=== PATIENT | male | born 1995 | race African-American/Black ===

== ENCOUNTER 2020-01-20 11:35 | Emergency (ER) | payer MEDICAID ==
[~2020-01-20] VITALS: Ht 188 cm; Wt 86.4 kg
[2020-01-20 12:57] LABS: BASOPHILS % (AUTO) 0.4 % (0.0-2.0); EOSINOPHILS % (AUTO) 0.3 % (1.0-6.0); HEMATOCRIT 45.1 % (41-53); HEMOGLOBIN 14.6 g/dL (13.5-17.5); LYMPHOCYTES # (AUTO) 1.4 K/uL (1.0-4.8); LYMPHOCYTES % (AUTO) 23.1 % (22.0-44.0); MEAN CORPUSCULAR HEMOGLOBIN 29.7 pg (26.0-34.0); MEAN CORPUSCULAR HGB CONC 32.4 G/dL (31.0-37.0); MEAN CORPUSCULAR VOLUME 92 fL (80-100); MONOCYTES # (AUTO) 0.5 K/uL (0.1-1.0); MONOCYTES % (AUTO) 8.2 % (2.0-9.0); PLATELET COUNT (AUTO) 211 K/uL (150-450); RED BLOOD CELL COUNT(AUTO) 4.93 MIL/uL (4.50-5.90); RED CELL DISTRIBUTION WIDTH 13.3 % (11.5-14.5)
[2020-01-20 13:06] LABS: ANION GAP 11 mmol/L (8-16); CARBON DIOXIDE 28 mmol/L (22-29); CHLORIDE 101 mmol/L (98-107); GLOMERULAR FILTR. RATE CALC > 60 mL/min (>60); GLUCOSE,RANDOM 75 mg/dL (70-110); POTASSIUM 4.2 mmol/L (3.5-5.1); SODIUM SERUM 140 mmol/L (136-145); UREA NITROGEN, BLOOD 12 mg/dL (7-18)
[2020-01-20 13:11] LABS: ALANINE AMINOTRANSFERASE 29 U/L (12-78); ALBUMIN 4.1 g/dL (3.4-5.0); ALKALINE PHOSPHATASE 55 U/L (46-116); ASPARTATE AMINOTRANSFERASE 32 U/L (15-37); BILIRUBIN,TOTAL 3.3 mg/dL (0.1-1.0); CREATINE KINASE, TOTAL ONLY 544 U/L (39-308); TOTAL PROTEIN, SERUM 6.9 g/dL (6.4-8.2)
[2020-01-20 16:12] VITALS: BP 118/68
== END 2020-01-20 16:21 | disposition home or self-care (01) ==
LOC: EMS 11:38 → EDBD 11:38 → EMS 16:21
DX: F19.10 Other psychoactive substance abuse, uncomplicated (principal); F41.9 Anxiety disorder, unspecified; F32.9 Major depressive disorder, single episode, unspecified; F20.9 Schizophrenia, unspecified; F12.20 Cannabis dependence, uncomplicated
CPT/HCPCS: 36415; 80053; 82550; 83735; 85025; 99285; G0480

== ENCOUNTER 2021-04-01 13:03 | Inpatient (IN) | payer MEDICAID ==
[2021-04-01 16:30] VITALS: BP 122/80
[2021-04-01] MEDS ORDERED: HALOPERIDOL 5 MG TABLET PO PRN (17:00)
[2021-04-01 18:30] VITALS: BP 137/89
[2021-04-01] MEDS ORDERED: RISP1TAB48 PO (18:48)
[2021-04-01] MEDS: ZOLPIDEM TARTRATE 10 MG TABLET PO PRN (23:26)
[2021-04-02 06:11] VITALS: BP 101/51
[2021-04-02] MEDS ORDERED: PETROLATUM,WHITE 28 GM JELLY TP PRN (10:15)
[2021-04-02] MEDS ORDERED: LOPERAMIDE HCL 2 MG CAPSULE PO PRN (10:15)
[2021-04-02] MEDS ORDERED: DOCUSATE SODIUM 100 MG CAPSULE PO PRN (10:15)
[2021-04-02] MEDS ORDERED: ONDANSETRON HCL 4 MG TABLET PO PRN (10:15)
[2021-04-02] MEDS ORDERED: NICOTINE 14 MG/24 HOUR PATCH TD PRN (10:15)
[2021-04-02] MEDS ORDERED: MAG HYDROX/AL HYDROX/SIMETH ES 30 ML SUSPENSION UDCUP PO PRN (10:15)
[2021-04-02] MEDS ORDERED: MAGNESIUM HYDROXIDE SUSPENSION 30 ML UDCUP PO PRN (10:15)
[2021-04-02] MEDS ORDERED: GuaiFENesin/D-METHORPHAN [SUGAR-FREE] 200-20MG/10 ML SYRUP UDCUP PO PRN (10:15)
[2021-04-02] MEDS ORDERED: ALBUTEROL SULFATE HFA 90 MCG/PUFF 8 GM INHALER IH PRN (10:15)
[2021-04-02] MEDS ORDERED: CloNIDine HCL 0.1 MG TABLET PO PRN (10:15)
[2021-04-02] MEDS ORDERED: IBUPROFEN 400 MG TABLET PO PRN (10:15)
[2021-04-02 16:10] VITALS: BP 146/79
[2021-04-02] MEDS: LORazepam 2 MG TABLET PO PRN (16:17)
[2021-04-02] MEDS: RisperiDONE 2 MG TABLET PO SCH (16:17)
[2021-04-02 17:17] VITALS: BP 108/58
[2021-04-03] MEDS: RisperiDONE 2 MG TABLET PO SCH ×2 (08:18→15:33)
[2021-04-03] MEDS: ACETAMINOPHEN 325 MG TABLET PO PRN (15:33)
[2021-04-03] MEDS: LORazepam 2 MG TABLET PO PRN ×2 (15:34→20:38)
[2021-04-03 16:04] VITALS: BP 113/81
[2021-04-03] MEDS: ZOLPIDEM TARTRATE 10 MG TABLET PO PRN (21:28)
[2021-04-04 04:29] VITALS: BP 118/83
[2021-04-04 08:05] VITALS: BP 120/80
[2021-04-04] MEDS: RisperiDONE 2 MG TABLET PO SCH ×2 (08:10→17:02)
[2021-04-04] MEDS: LORazepam 2 MG TABLET PO PRN (11:19)
[2021-04-04 16:06] VITALS: BP 109/68
[2021-04-04] MEDS: ZOLPIDEM TARTRATE 10 MG TABLET PO PRN (19:25)
[2021-04-04 19:28] VITALS: BP 114/70
[2021-04-04] MEDS: ACETAMINOPHEN 325 MG TABLET PO PRN (19:28)
[2021-04-05 02:46] VITALS: BP 118/72
[2021-04-05] MEDS: RisperiDONE 2 MG TABLET PO SCH ×3 (08:08→16:03)
[2021-04-05] MEDS: LORazepam 2 MG TABLET PO PRN (15:54)
[2021-04-05 16:05] VITALS: BP 113/76
[2021-04-06 04:00] VITALS: BP 115/72
[2021-04-06] MEDS: LORazepam 2 MG TABLET PO PRN ×3 (08:21→21:23)
[2021-04-06] MEDS: RisperiDONE 2 MG TABLET PO SCH ×2 (08:21→16:28)
[2021-04-06] MEDS: ACETAMINOPHEN 325 MG TABLET PO PRN (08:21)
[2021-04-06 16:03] VITALS: BP 110/78
[2021-04-07 05:29] VITALS: BP 119/74
[2021-04-07] MEDS: RisperiDONE 2 MG TABLET PO SCH ×2 (08:18→16:26)
[2021-04-07 08:49] VITALS: BP 122/66
[2021-04-07 16:07] VITALS: BP 116/76
[2021-04-07] MEDS: LORazepam 2 MG TABLET PO PRN (16:27)
[2021-04-07] MEDS: ZOLPIDEM TARTRATE 10 MG TABLET PO PRN (20:14)
[2021-04-08 00:32] VITALS: BP 132/76
[2021-04-08] MEDS: RisperiDONE 2 MG TABLET PO SCH (08:19)
[2021-04-08] MEDS: ACETAMINOPHEN 325 MG TABLET PO PRN (14:45)
[2021-04-08] MEDS ORDERED: RISP2TAB45 PO (15:09)
== END 2021-04-08 16:16 | disposition home or self-care (01) | DRG 750 ==
LOC: B2S 15:04 → B3A 15:04 → UNDOADMIN 15:04 → B3A 04-02 02:05
DX: F25.1 Schizoaffective disorder, depressive type (principal); R45.851 Suicidal ideations; K59.00 Constipation, unspecified; F15.10 Other stimulant abuse, uncomplicated; F41.9 Anxiety disorder, unspecified; Z79.899 Other long term (current) drug therapy
CPT/HCPCS: Z7610

== ENCOUNTER 2021-11-09 01:42 | Inpatient (IN) | payer MEDICAID ==
[~2021-11-09] VITALS: Ht 188 cm; Wt 72.1 kg
[~2021-11-09 01:42] MED LIST: RISP2TAB45 PO
[2021-11-09 02:17] LABS: BASOPHILS % (AUTO) 0.9 % (0.0-2.0); HEMOGLOBIN 13.9 g/dL (13.5-17.5); LYMPHOCYTES # (AUTO) 1.7 K/uL (1.0-4.8); MEAN CORPUSCULAR HEMOGLOBIN 30.2 pg (26.0-34.0); MEAN CORPUSCULAR VOLUME 89 fL (80-100); MONOCYTES # (AUTO) 0.7 K/uL (0.1-1.0); MONOCYTES % (AUTO) 17.4 % (2.0-9.0); NEUTROPHILS # (AUTO) 1.2 K/uL (1.8-7.7); NEUTROPHILS % (AUTO) 32.7 % (40.0-70.0); PLATELET COUNT (AUTO) 278 K/uL (150-450); RED BLOOD CELL COUNT(AUTO) 4.62 MIL/uL (4.50-5.90); RED CELL DISTRIBUTION WIDTH 13.5 % (11.5-14.5)
[2021-11-09 02:28] LABS: ANION GAP 3 mmol/L (8-16); CALCIUM, TOTAL 8.9 mg/dL (8.8-10.5); CARBON DIOXIDE 33 mmol/L (22-29); CHLORIDE 105 mmol/L (98-107); CREATININE 0.89 mg/dL (0.60-1.30); GLOMERULAR FILTR. RATE CALC > 60 mL/min (>60); GLUCOSE,RANDOM 73 mg/dL (70-110); POTASSIUM 3.7 mmol/L (3.5-5.1); SODIUM SERUM 141 mmol/L (136-145); UREA NITROGEN, BLOOD 14 mg/dL (7-18)
[2021-11-09 02:31] LABS: ALANINE AMINOTRANSFERASE 21 U/L (12-78); ALBUMIN 3.9 g/dL (3.4-5.0); ALKALINE PHOSPHATASE 79 U/L (46-116); ASPARTATE AMINOTRANSFERASE 17 U/L (15-37); BILIRUBIN,TOTAL 0.2 mg/dL (0.1-1.0); TOTAL PROTEIN, SERUM 7.7 g/dL (6.4-8.2)
[2021-11-09] MEDS ORDERED: ZOLPIDEM TARTRATE 10 MG TABLET PO PRN (03:00)
[2021-11-09 04:17] LABS: COVID AG,FIA SOURCE NASOPHARYNGEAL
[2021-11-09] MEDS ORDERED: INFLUENZA VIRUS VACCINE QVS 2021-22 (6MO+)/PF 60 MCG/0.5 ML SYRINGE IM. ONE (14:00)
[2021-11-09 14:54] VITALS: BP 124/69
[2021-11-09] MEDS ORDERED: NICOTINE 14 MG/24 HOUR PATCH TD PRN (17:00)
[2021-11-09] MEDS ORDERED: LOPERAMIDE HCL 2 MG CAPSULE PO PRN (17:00)
[2021-11-09] MEDS ORDERED: PETROLATUM,WHITE 28 GM JELLY TP PRN (17:00)
[2021-11-09] MEDS ORDERED: ALBUTEROL SULFATE HFA 90 MCG/PUFF 8 GM INHALER IH PRN (17:00)
[2021-11-09] MEDS ORDERED: MAG HYDROX/AL HYDROX/SIMETH ES 30 ML SUSPENSION UDCUP PO PRN (17:00)
[2021-11-09] MEDS ORDERED: ONDANSETRON HCL 4 MG TABLET PO PRN (17:00)
[2021-11-09] MEDS ORDERED: GuaiFENesin/D-METHORPHAN [SUGAR-FREE] 200-20MG/10 ML SYRUP UDCUP PO PRN (17:00)
[2021-11-09] MEDS ORDERED: CloNIDine HCL 0.1 MG TABLET PO PRN (17:00)
[2021-11-09] MEDS ORDERED: MAGNESIUM HYDROXIDE SUSPENSION 30 ML UDCUP PO PRN (17:00)
[2021-11-09] MEDS ORDERED: DOCUSATE SODIUM 100 MG CAPSULE PO PRN (17:00)
[2021-11-09] MEDS ORDERED: IBUPROFEN 400 MG TABLET PO PRN (17:00)
[2021-11-09] MEDS: ACETAMINOPHEN 325 MG TABLET PO PRN (18:08)
[2021-11-10] MEDS: ACETAMINOPHEN 325 MG TABLET PO PRN ×2 (06:57→16:03)
[2021-11-10] MEDS ORDERED: RisperiDONE CONC 1 MG/ML SOLUTION ORAL.SYG PO ONE (11:30)
[2021-11-10] MEDS: LORazepam 2 MG TABLET PO PRN (16:03)
[2021-11-10] MEDS: HALOPERIDOL 5 MG TABLET PO PRN (16:03)
[2021-11-10] MEDS: RisperiDONE 2 MG TABLET PO SCH (16:08)
[2021-11-11] MEDS: RisperiDONE 2 MG TABLET PO SCH ×2 (08:14→16:06)
[2021-11-11 09:01] VITALS: BP 120/73
[2021-11-11] MEDS: ACETAMINOPHEN 325 MG TABLET PO PRN (17:21)
[2021-11-11] MEDS ORDERED: DiphenhydrAMINE HCL 25 MG CAPSULE ONE (17:21)
[2021-11-11] MEDS: LORazepam 2 MG TABLET PO PRN (17:35)
[2021-11-11] MEDS: HALOPERIDOL 5 MG TABLET PO PRN (17:35)
[2021-11-11] MEDS ORDERED: DiphenhydrAMINE HCL 25 MG CAPSULE PO PRN (17:45)
[2021-11-12 08:27] VITALS: BP 126/71
[2021-11-12] MEDS: RisperiDONE 2 MG TABLET PO SCH ×2 (08:29→16:00)
[2021-11-12] MEDS: LORazepam 2 MG TABLET PO PRN (15:56)
[2021-11-12] MEDS: HALOPERIDOL 5 MG TABLET PO PRN (15:56)
[2021-11-13] MEDS: RisperiDONE 2 MG TABLET PO SCH ×2 (08:39→16:23)
[2021-11-13] MEDS: LORazepam 2 MG TABLET PO PRN ×2 (08:39→16:23)
[2021-11-13] MEDS: HALOPERIDOL 5 MG TABLET PO PRN (16:23)
[2021-11-13 17:07] VITALS: BP 106/62
[2021-11-14 05:31] VITALS: BP 112/71
[2021-11-14] MEDS: LORazepam 2 MG TABLET PO PRN (08:22)
[2021-11-14] MEDS: RisperiDONE 2 MG TABLET PO SCH (08:22)
== END 2021-11-14 13:30 | disposition home or self-care (01) | DRG 750 ==
LOC: EMS 01:44 → B3A 10:43 → B2S 13:55 → B3A 11-11 19:28
PROVIDERS: ADMIT Psychiatry & Neurology Child & Adolescent Psychiatry; ATTEND Psychiatry & Neurology Child & Adolescent Psychiatry
DX: F20.0 Paranoid schizophrenia (principal); E43 Unspecified severe protein-calorie malnutrition; R45.851 Suicidal ideations; Z59.00 Homelessness unspecified; Z91.19 Patient's noncompliance with other medical treatment and regimen; Z20.822 Contact with and (suspected) exposure to COVID-19; D72.819 Decreased white blood cell count, unspecified; F41.1 Generalized anxiety disorder; G47.00 Insomnia, unspecified; F32.A Depression, unspecified; Z68.20 Body mass index [BMI] 20.0-20.9, adult; Z28.21 Immunization not carried out because of patient refusal
CPT/HCPCS: 80053; 85025; 99285; G0480